=== PATIENT | female | born 1950 | race Caucasian/White ===

== ENCOUNTER → 2016-12-28 | Outpatient (CLI) | payer OTHER ==
[~2016-12-28] MED LIST: ACET-732 PO; ASPI-380 PO; CHLO1TAB34 PO; HYDR-2164 PO; IBUP200C42 PO; LISI-126 PO
== END ==
LOC: WC.BC 08:49
DX: Z12.31 Encounter for screening mammogram for malignant neoplasm of breast (principal); N64.59 Other signs and symptoms in breast
CPT/HCPCS: 77063; G0202